=== PATIENT | female | born 1965 | race Two or more races ===

== ENCOUNTER 2021-08-13 09:17 | Emergency (ER) | payer OTHER, SELFPAY ==
--- NOTE | ~2021-08-13 | CT_ITS ---
EXAMINATION: CT HEAD WITHOUT CONTRAST CLINICAL INFORMATION: Frontal headache for 3 months. COMPARISON: None TECHNIQUE: Contiguous axial imaging was performed from the skull base to vertex without intravenous administration of contrast. Additional 2-D coronal and sagittal reformatted images are generated on the CT workstation and uploaded to PACS. This CT examination was performed using dose optimization techniques as appropriate, variously including the following: *Automated exposure control *Adjustment of mA and/or kV according to patient size (this includes techniques or standardized protocols for targeted exams where dose is matched to indication/reason for exam; i.e. extremities or head) *Use of iterative reconstruction technique DLP: 631 mGy-cm FINDINGS: There is no intracranial hemorrhage, hematoma, or extra-axial fluid collection. The ventricles are normal in size. There is no hydrocephalus, edema, or mass effect. There is some mild accentuated cortical sulci frontal regions representing mild atrophy. The lange-white matter differentiation appears well preserved and symmetric. There is no visible acute territorial infarct or mass lesion. The calvarium appears intact. There is no pneumocephalus or orbital emphysema. The visualized sinuses and middle ears and mastoid air cells show no significant mucosal thickening. There are no air-fluid levels. CT/CT head/brain wo con IMPRESSION: No acute intracranial abnormality.
--- NOTE | ~2021-08-13 | XR_ITS ---
EXAMINATION: XR CHEST CLINICAL INFORMATION: Shortness of breath. COMPARISON: None TECHNIQUE: 2 views of the chest were obtained. FINDINGS: No significant abnormality is noted involving the heart, lungs, mediastinum, bony thorax or soft tissues. XR/XR chest 2V IMPRESSION: Unremarkable chest examination.
[2021-08-13 10:27] VITALS: BP 176/84; PULSE 82; RESP 18; TEMP 36.9; O2SAT 98; BMI 26.6
--- NOTE | 2021-08-13 11:40 | ED_ITS ---
HPI - General Adult General Chief complaint: Headache Stated complaint: headache x 3 months Time Seen by Provider: 08/13/21 11:21 Source: patient Mode of arrival: ambulatory Limitations: no limitations History of Present Illness HPI narrative: 56-year-old female who presents emergency department for evaluation of shortness of breath and headache. 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 She states that 3 months prior they sprayed the building for COVID and she became exposed. She states that she developed shortness of breath at that time and had a chest x-ray which she was told is consistent with inflammation. She states that since that time she has had a constant headache. She states that the headache is located in her frontal area and behind her eyes. She also feels the headache and her occipital area. She states that the headache is a constant, pressure sensation which is 8/10 at its worst. She has pressure behind her eyes which she describes as a hot fee ling. She denied nausea, vomiting or weakness. She denies fever, chills, rhinorrhea. She states that her doctor thought that she might have a sinus infection and treated her with azithromycin and a steroid nasal spray. She did not complete the azithromycin and she stopped using the nasal sprays and she states these medicines did not help her. She has been taking ibuprofen and acetaminophen with no relief. The patient is not vaccinated for COVID-19. Related Data Previous Rx's Medication Instructions Recorded metoclopramide HCl 10 mg tablet 10 mg PO Q6H PRN #14 tab 08/13/21 (Reglan) Allergies Allergy/AdvReac Type Severity Reaction Status Date / Time penicillin G Allergy Unknown Verified 06/07/19 00:00 Review of Systems Review of Systems: Yes all other systems are reviewed and are negative [facility] Past Medical History [facility] Narrative: Past medical history: Hypertension, she does not take any medications for this, anemia. Social history: The patient denies tobacco, alcohol and drug use. 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 Social History Social History Alcohol intake: never Patient Tobacco Use Status: Never used Tobacco Use of substances other than those prescribed or required for medical reasons: No Advance Directives: No Patient : No Physical Exam Vital Signs: Vital Signs: Last Vital Signs Temp 98.4 F 08/13/21 10:27 Pulse 82 08/13/21 10:27 Resp 18 08/13/21 10:27 BP 176/84 H 08/13/21 10:27 Pulse Ox 98 08/13/21 10:27 Body Mass Index 26.6 Const: General: cooperative and no acute distress Orientation/consciousness: oriented to person and oriented to place Limitations: no limitations HENMT: Head: Yes normal to inspection, Yes normocephalic and Yes atraumatic Ears: external ears normal General nose exam: Normal external nose present Face and sinus: Yes normal facial exam Mouth: Normal oral and palatal mucosa present Throat: Yes posterior oropharynx normal Eyes: General: appearance normal, both eyes and all related structures Pupils: Equal, round and reactive pupils present Neck: Neck: Yes normal visual inspection, Yes no lymphadenopathy, Yes trachea midline and Yes supple Chest: Chest palpation & inspection: normal inspection of the chest and normal palpation of entire chest wall Resp: Effort & Inspection: normal respiratory effort and able to speak in complete sentences Auscultation: clear to auscultation bilaterally Cardio: Rate: regular rate Rhythm: regular rhythm Heart sounds: S1 normal heart sound present, S2 normal heart sound present and no murmurs GI: Inspection: Yes normal to inspection Palpation (GI): Soft to palpation, nontender and no guarding Auscultation: normal bowel sounds : General: Yes no CVA tenderness Back/Spine/Pelvis: Back: no CVA tenderness Skin: General skin exam: no rashes or lesions noted Neuro: General: oriented to person and oriented to place Cranial nerves: Yes CN's II-XII intact bilaterally and Yes Equal, round and reactive pupils present Cognition (Neuro): normal cognition Motor exam (neuro): 5/5 motor strength present throughout Extrem: General: Yes normal to inspection Psych: Appearance: grossly normal Speech and movement: Normal speech and movement present Affect: normal affect Attitude: cooperative Thought process: Normal thought process present Thought content: Normal thought content present Course Course Course Narrative: 56-year-old female who presents emergency department for evaluation of a constant headache x3 months that started after she was exposed to some type of medical cleaning solution for COVID-19. The patient was shayy luated by her PCP and was treated for sinusitis with a steroid nasal spray and azithromycin which she states did not change her symptoms. She has been taking acetaminophen and ibuprofen with no relief. Vital signs did reveal an elevated blood pressure of 176/84 otherwise were unremarkable. Physical examination was unremarkable. Given the chronicity of her headache, I did order a CBC, CMP, urinalysis, ESR and CRP. I will also obtain a CT scan of the patient's head to rule out mass effect. Patient's headache will be treated with Reglan 10 mg IV and Toradol 30 mg IV. She was also ordered to get normal saline IV x1 L. 1357: Laboratory evaluation was unremarkable with a normal ESR normal CRP. The CT scan of the patient's head revealed no acute findings. Chest x-ray revealed no acute findings. At this time, I suspect the patient's headaches are consistent with a migraine-like syndrome and I did discuss this with her. She was advised to take the following medications every 6 hours as needed for headache: Excedrin migraine 1 tablet, Reglan 10 mg. She was also advised to follow-up with PCP for re-evaluation and return to the emergency department if her symptoms get worse or she develops any symptoms that Medical Decision Making Lab Data Result diagrams: 08/13/21 12:38 08/13/21 12:38 Labs: Lab Results 08/13/21 08/13/21 08/13/21 Range/Units 12:38 12:38 12:38 WBC 7.3 (4.8-10.8) X10*3/uL RBC 5.41 (4.20-5.50) X10*6/uL Hgb 11.3 L (12.0-16.0) g/dl Hct 38.3 (37.0-47.0) % MCV 70.8 L (80.0-98.0) fL MCH 20.9 L (27.0-33.0) pg MCHC 29.5 L (31.0-35.0) g/dl RDW 16.7 H (11.0-16.0) % Plt Count 438 H (160-400) X10*3/uL MPV 10.9 (9.4-12.3) fL Immature Gran % (Auto) 0.4 (0.0-0.4) % Neut % (Auto) 71.8 (45-73) % Lymph % (Auto) 18.2 L (20-40) % [place] % (Auto) 7.3 (2-11) % Eos % (Auto) 1.6 (0-4) % Baso % (Auto) 0.7 (0-2) % Lymph # (Auto) 1.3 (1.2-4.9) X10*3/uL [place] # (Auto) 0.5 (0.1-1.2) X10*3/uL Eos # (Auto) 0.1 (0.0-0.4) X10*3/uL Baso # (Auto) 0.1 (0.0-0.2) X10*3/uL Abs Immat Gran (auto) 0.03 (0.00-0.03) X10*3/uL Absolute Neuts (auto) 5.3 (2.0-8.3) x10*3/uL Absolute Nucleated RBC 0.000 (0.0-0.012) X10*3/uL Nucleated RBC % (auto) 0.0 (0.0-0.2) /100WBC ESR 5 (0-20) MM/HR Sodium 139 (135-145) mmol/L Potassium 4.5 (3.3-5.1) mmol/L Chloride 105 (96-108) mmol/L Carbon Dioxide 23 (22-29) mmol/L Anion Gap 16 (12-20) BUN 10 (9-16) mg/dL Creatinine 0.80 (0.5-1.4) mg/dL Estim Creat Clear Calc 86.0 Estimated GFR > 60 Random Glucose 99 (60-115) mg/dL Calcium 10.1 (8.4-10.2) mg/dL Total Bilirubin 1.1 H (0.0-1.0) mg/dL AST 19 (5-31) U/L ALT 24 (0-31) U/L Alkaline Phosphatase 71 (39-117) U/L C-Reactive Protein 0.60 H (< or = 0.50) mg/dL Total Protein 8.0 (6.5-8.0) g/dL Albumin 4.6 (3.5-5.0) g/dL COVID-19 ([facility]) (Negative) COVID-19 Clin Com 08/13/21 Range/Units 12:38 WBC (4.8-10.8) X10*3/uL RBC (4.20-5.50) X10*6/uL Hgb (12.0-16.0) g/dl Hct (37.0-47.0) % MCV (80.0-98.0) fL MCH (27.0-33.0) pg MCHC (31.0-35.0) g/dl RDW (11.0-16.0) % Plt Count (160-400) X10*3/uL MPV (9.4-12.3) fL Immature Gran % (Auto) (0.0-0.4) % Neut % (Auto) (45-73) % Lymph % (Auto) (20-40) % [place] % (Auto) (2-11) % Eos % (Auto) (0-4) % Baso % (Auto) (0-2) % Lymph # (Auto) (1.2-4.9) X10*3/uL [place] # (Auto) (0.1-1.2) X10*3/uL Eos # (Auto) (0.0-0.4) X10*3/uL Baso # (Auto) (0.0-0.2) X10*3/uL Abs Immat Gran (auto) (0.00-0.03) X10*3/uL Absolute Neuts (auto) (2.0-8.3) x10*3/uL Absolute Nucleated RBC (0.0-0.012) X10*3/uL Nucleated RBC % (auto) (0.0-0.2) /100WBC ESR (0-20) MM/HR Sodium (135-145) mmol/L Potassium (3.3-5.1) mmol/L Chloride (96-108) mmol/L Carbon Dioxide (22-29) mmol/L Anion Gap (12-20) BUN (9-16) mg/dL Creatinine (0.5-1.4) mg/dL Estim Creat Clear Calc Estimated GFR Random Glucose (60-115) mg/dL Calcium (8.4-10.2) mg/dL Total Bilirubin (0.0-1.0) mg/dL AST (5-31) U/L ALT (0-31) U/L Alkaline Phosphatase (39-117) U/L C-Reactive Protein (< or = 0.50) mg/dL Total Protein (6.5-8.0) g/dL Albumin (3.5-5.0) g/dL COVID-19 ([facility]) Negative (Negative) COVID-19 Clin Com See Note Discharge Plan Discharge Clinical Impression: Headache Patient Disposition: Home, Self-Care Instructions: Acute Headache (ED) Additional Instructions: Your blood work was normal. You had 2 inflammatory markers that I would tested (sedimentation rate and CRP) that were normal. The CT scan of your head was also normal. Sometimes the cause of headaches is difficult to determine however at this time I do not think that you have an infection such as sinusitis or and any serious conditions causing her headache. I want you to take the following 2 medications together every 6 hours as needed for headache, nausea or vomiting. Reglan (metoclopramide) in 10 mg, 1 pill Excedrin migraine, 2 pills. After you take these medications, lie down in a dark quiet room and try to fall asleep. These medications will make you sleepy, do not drive or work after taking these medications. Your blood pressure was high in the emergency department. Your blood pressure was 176/84. This is not the cause of your headache. You should get a home blood pressure machine and check your blood pressure at home and the mornings on Mondays, Wednesdays and Fridays. Write these blood pressures down for the next 2-3 weeks then follow-up with her doctor determine if you need treatment for your high blood pressure. Follow-up with your doctor in 2 days. Please return to the emergency department if your symptoms get worse or if you develop any symptoms that are concerning to you. Prescriptions: New metoclopramide HCl [Reglan] 10 mg tablet 10 mg PO Q6H PRN (Reason: nausea and vomiting) Qty: 14 RF: 0
--- NOTE | 2021-08-13 12:35 | PC.NURSE ---
pt has been a difficult stick. IV finally established by Harvey SKAGGS. Pt complaining of diffuse headache x 3 months. consisitent.
[2021-08-13 12:45] LABS: MANUAL DIFF FLAG NO
[2021-08-13] MEDS: 0.9 % Sodium Chloride 1,000 ML 999 ML IV (12:51)
[2021-08-13] MEDS: Ketorolac Tromethamine 15 MG/ML VIAL 30 MG IVPUSH (12:52)
[2021-08-13 12:53] LABS: Basophils Absolute Auto 0.1 X10*3/uL (0.0-0.2); Basophils Percent Auto 0.7 % (0-2); Eosinophils Absolute Auto 0.1 X10*3/uL (0.0-0.4); Eosinophils Percent Auto 1.6 % (0-4); Hematocrit 38.3 % (37.0-47.0); Hemoglobin 11.3 g/dl (12.0-16.0); Imm Gran Abs Auto 0.03 X10*3/uL (0.00-0.03); Imm Gran Pct Auto 0.4 % (0.0-0.4); Lymphocytes Absolute Auto 1.3 X10*3/uL (1.2-4.9); Lymphocytes Percent Auto 18.2 % (20-40); Mean Corpuscular HGB Conc 29.5 g/dl (31.0-35.0); Mean Corpuscular Hemoglobin 20.9 pg (27.0-33.0); Mean Corpuscular Volume 70.8 fL (80.0-98.0); Mean Platelet Volume 10.9 fL (9.4-12.3); Monocytes Absolute Auto 0.5 X10*3/uL (0.1-1.2); Monocytes Percent Auto 7.3 % (2-11); Neutrophils Absolute Auto 5.3 x10*3/uL (2.0-8.3); Neutrophils Percent Auto 71.8 % (45-73); Platelet Count 438 X10*3/uL (160-400); Red Blood Count 5.41 X10*6/uL (4.20-5.50); Red Cell Distribution Width 16.7 % (11.0-16.0); White Blood Count 7.3 X10*3/uL (4.8-10.8)
[2021-08-13] MEDS: Metoclopramide HCl 10 MG/2 ML VIAL IVPUSH (12:53)
[2021-08-13 13:02] LABS: COVID-19 Test Negative (Negative)
[2021-08-13 13:06] LABS: Alanine Aminotransferase 24 U/L (0-31); Albumin Level 4.6 g/dL (3.5-5.0); Alkaline Phosphatase 71 U/L (39-117); Anion Gap 16 (12-20); Aspartate Amino Transferase 19 U/L (5-31); Bilirubin Total 1.1 mg/dL (0.0-1.0); Blood Urea Nitrogen 10 mg/dL (9-16); Calcium 10.1 mg/dL (8.4-10.2); Carbon Dioxide 23 mmol/L (22-29); Chloride 105 mmol/L (96-108); Estimated Glomerular Filt Rate > 60; Glucose Random 99 mg/dL (60-115); Potassium 4.5 mmol/L (3.3-5.1); Sodium 139 mmol/L (135-145)
[2021-08-13 13:45] LABS: Erythrocyte Sedimentation Rate 5 MM/HR (0-20)
[2021-08-13 15:22] VITALS: BP 138/83; PULSE 73; RESP 18; TEMP 37; O2SAT 100
== END 2021-08-13 15:26 | disposition home or self-care (01) ==
PROVIDERS: Emergency Provider Emergency Medicine Emergency Medical Services
DX: R51.9 Headache, unspecified (principal); Z20.822 Contact with and (suspected) exposure to COVID-19; R06.02 Shortness of breath
CPT/HCPCS: 36415; 70450; 71046; 80053; 85025; 85652; 86140; 87635; 96361; 96374; 96375; 99284; J1885; J2765

== ENCOUNTER 2024-01-18 08:52 | Emergency (ER) | payer OTHER, SELFPAY ==
--- NOTE | 2024-01-18 | ECG_ITS ---
Test Reason : CHEST PAIN Blood Pressure : / mmHG Vent. Rate : 080 BPM Atrial Rate : 080 BPM P-R Int : 136 ms QRS Dur : 074 ms QT Int : 362 ms P-R-T Axes : 032 030 071 degrees QTc Int : 417 ms Normal sinus rhythm Normal ECG No previous ECGs available Referred By: Generic ED Physician Electronically Signed By:Pierre Gee
--- NOTE | ~2024-01-18 | XR_ITS ---
EXAMINATION: XR CHEST CLINICAL INFORMATION: Chest pain COMPARISON: 08/13/2021 TECHNIQUE: 2 views of the chest were obtained. FINDINGS: Lungs are well-inflated. Linear opacity of minimal scarring or atelectasis in the lingula. Trachea is midline in position. No interstitial disease, consolidation or mass. There appears to be an old bulla in the medial left upper lobe. No pleural effusion or pneumothorax. Cardiac silhouette and pulmonary vessels are normal in size. The mediastinum and sharon have normal contour. No acute osseous abnormality. Moderate discovertebral degenerative change at L1-L2. XR/XR chest 2V IMPRESSION: No acute cardiopulmonary abnormality.
--- NOTE | ~2024-01-18 | CT_ITS ---
EXAMINATION: CT CHEST WITHOUT CONTRAST CLINICAL INFORMATION: Evaluate mass on left lung COMPARISON: Chest radiograph from 01/18/2024 TECHNIQUE: Multidetector volumetric CT imaging of the chest was done. Axial MIP volume rendering provided. Sagittal and coronal reformatted images were obtained. This CT examination was performed using dose optimization techniques as appropriate, variously including the following: *Automated exposure control *Adjustment of mA and/or kV according to patient size (this includes techniques or standardized protocols for targeted exams where dose is matched to indication/reason for exam; i.e. extremities or head) *Use of iterative reconstruction technique DLP: 219 mGy-cm FINDINGS: LUNGS/PLEURA: Large thin-walled bulla along the left upper lobe measuring 7.5 x 5.8 cm with smaller more septated air-filled cystic spaces with calcifications noted inferiorly. No focal consolidation. No large or suspicious pulmonary nodules or masses are noted. Central airways are patent. No pneumothorax. No large pleural effusion. MEDIASTINUM: Heart is not enlarged. No pericardial effusion. No coronary artery calcifications are noted. Aorta is nonaneurysmal. Atherosclerotic calcific patient with aortic arch. Main pulmonary artery is not enlarged. No enlarged lymph nodes per size criteria. Visualized portions of the thyroid are unremarkable. AXILLA: No lymphadenopathy. UPPER ABDOMEN: Spleen measures 12.5 cm. OSSEOUS STRUCTURES: Multilevel degenerative changes of the thoracolumbar spine. CT/CT chest wo IV con IMPRESSION: Large thin-walled bulla along the medial left upper lobe measuring 7.5 x 5.8 cm with smaller more septated air-filled cystic spaces with calcifications noted inferiorly.
[2024-01-18 09:04] VITALS: BP 171/100; PULSE 87; RESP 16; TEMP 36.6; O2SAT 99; BMI 25.1
[2024-01-18 09:35] LABS: MANUAL DIFF FLAG NO
[2024-01-18 09:38] LABS: Basophils Percent Auto 0.3 % (0-2); Eosinophils Absolute Auto 0.1 X10*3/uL (0.0-0.4); Eosinophils Percent Auto 1.5 % (0-4); Hemoglobin 14.4 g/dl (12.0-16.0); Imm Gran Abs Auto 0.03 X10*3/uL (0.00-0.03); Imm Gran Pct Auto 0.4 % (0.0-0.4); Lymphocytes Absolute Auto 1.3 X10*3/uL (1.2-4.9); Mean Corpuscular HGB Conc 33.5 g/dl (31.0-35.0); Mean Corpuscular Hemoglobin 28.3 pg (27.0-33.0); Mean Corpuscular Volume 84.6 fL (80.0-98.0); Mean Platelet Volume 11.1 fL (9.4-12.3); Monocytes Absolute Auto 0.5 X10*3/uL (0.1-1.2); Monocytes Percent Auto 6.8 % (2-11); Neutrophils Absolute Auto 5.3 x10*3/uL (2.0-8.3); Platelet Count 305 X10*3/uL (160-400); Red Blood Count 5.08 X10*6/uL (4.20-5.50); Red Cell Distribution Width 12.7 % (11.0-16.0); White Blood Count 7.2 X10*3/uL (4.8-10.8)
[2024-01-18 09:39] LABS: Appearance Urine Clear; Color Urine Yellow; Glucose Urine UA Negative (Negative); Leukocyte Esterase Urine Trace (Negative); Nitrite Urine Negative (Negative); UMIC TRIGGER UACC YES; Urine Blood Negative (Negative); Urine Ketones Trace mg/dL (Negative); Urine Protein Negative (Neg-Trace)
[2024-01-18 09:43] LABS: Bacteria Urine None Seen (None Seen); Hyaline Casts Urine 0-2 /LPF (0-2); RBC Urine 0-2 /HPF (0-2); Squamous Epithelial Cell Urine 0-2 /HPF (0-2); WBC Urine 0-5 /HPF (0-5)
[2024-01-18 09:57] LABS: Alanine Aminotransferase 19 U/L (0-31); Albumin Level 4.4 g/dL (3.5-5.0); Alkaline Phosphatase 69 U/L (39-117); Anion Gap 15 (12-20); Aspartate Amino Transferase 17 U/L (5-31); Bilirubin Total 1.1 mg/dL (0.0-1.0); Blood Urea Nitrogen 11 mg/dL (9-16); Calcium 10.2 mg/dL (8.4-10.2); Carbon Dioxide 23 mmol/L (22-29); Chloride 107 mmol/L (96-108); Creatinine Clr Calc Pharmacy 76.3; Estimated Glomerular Filt Rate > 60; Glucose Random 94 mg/dL (60-115); Potassium 3.9 mmol/L (3.3-5.1); Sodium 141 mmol/L (135-145); Total Protein 7.9 g/dL (6.5-8.0)
[2024-01-18 10:08] LABS: Troponin-I High Sensitivity < 2.7 ng/L (<3.5-17.0)
--- NOTE | 2024-01-18 18:25 | ED_ITS ---
HPI - Chest Pain General Chief Complaint: Chest Pain Stated Complaint: chest pain Time Seen by Provider: 01/18/24 20:26 Source: patient Mode of arrival: ambulatory Limitations: no limitations History of Present Illness HPI narrative: 58 year old female with pmh of HTN, known left lung mass, and depression presents to ED for mild left-sided chest discomfort that began this morning and wanted to see if there increase in size of mass. Patient states having this chest pain multiple times before since 2020 and she was informed by primary care provider this was due to the left lung bulla. Patient denies any pleurisy, leg swelling, calf pain, coughing up blood, recent long travel, recent surgery, history, of blood clots, or estrogen use. Related Data Previous Rx's ?Medication ?Instructions ?Recorded metoclopramide HCl 10 mg tablet 10 mg PO Q6H PRN nausea and 08/13/21 (Reglan) vomiting #14 tabs Allergies Allergy/AdvReac Type Severity Reaction Status Date / Time penicillin G Allergy Unknown Unknown Verified 01/18/24 09:05 Review of Systems 2 Review of Systems: mild chest discomfot Yes all other systems are reviewed and are negative [facility] Social History Social History Alcohol intake: never Patient Tobacco Use Status: Never used Tobacco Smoked in Last 30 Days: No Use of substances other than those prescribed or required for medical reasons: No Advance Directives: No Advance Directives Information Provided: No Do you have a plan to hurt others: No Plan Physical Exam 2 Vital Signs: Vital Signs: Last Vital Signs Temp 97.9 F 01/18/24 21:39 Pulse 78 01/18/24 21:39 Resp 16 01/18/24 21:39 BP 135/86 01/18/24 21:39 Pulse Ox 99 01/18/24 21:39 O2 Del Method Room Air 01/18/24 21:39 BMI result Body Mass Index 25.1 Const: Orientation/consciousness: oriented to person, oriented to place, oriented to time and patient oriented x3 HEENT: Head: Yes normal to inspection, Yes No palpable skull fracture present, Yes normocephalic and Yes atraumatic Eyes: General: appearance normal, both eyes and all related structures Neck: Neck: Yes normal visual inspection, Yes full ROM, Yes no lymphadenopathy, Yes no meningeal signs, Yes trachea midline, Yes supple, No anterior neck swelling and No tender Chest: Chest palpation & inspection: normal inspection of the chest and normal palpation of entire chest wall Resp: Effort & Inspection: normal respiratory effort and able to speak in complete sentences Auscultation: clear to auscultation bilaterally Cardio: Jugular venous distension: no JVD Heart sounds: S1 normal heart sound present and S2 normal heart sound present GI: Inspection: Yes normal to inspection Palpation (GI): Soft to palpation, not firm, nontender, no guarding and not rigid : General: No CVA tenderness and Yes no CVA tenderness Back/Spine/Pelvis: Back: no CVA tenderness, No CVA tenderness and No back tenderness Skin: General skin exam: no rashes or lesions noted, elasticity normal and turgor normal Neuro: General: oriented to person, oriented to place, oriented to time, patient oriented x3, gait normal, tone normal, moves all extremities, Normal light touch and pain sensation, no meningeal signs, no focal motor deficits, CN's II-XI intact bilaterally and normal sensation to monofilament Extrem: Other: Bilateral lower extremity negative for swelling, pitting edema, or calf tenderness General: Yes normal to inspection, Yes full ROM and Yes capillary refill normal Psych: Appearance: grossly normal, well kempt and not disheveled Course Course Course Narrative: RME performed by Aditi Haas PA-C. Patient is a 58 year old assigned female at presenting to the emergency department with chest pain and requesting further evaluation of left lung mass. Detailed physical exam and review of systems are deferred to the corporate technical recruiter. Labs, imaging, and swabs ordered. Patient placed back in the waiting room pending room availability and results. Medical Decision Making Medical Decision Making MDM Narrative: 58-year-old female history of hypertension, known left lung bullae, and depression presents to ED for mild left-sided chest discomfort. Patient presently asymptomatic. Patient made concern was to see those increased size in the left lung bulla. He denies any CHF or PE symptoms. Patient has no risk for PE or CHF. Chest CT chest x-ray confirms left lung bulla. Patient does not want 2nd troponin to rule out myocardial infarction. Patient informed of risks including and still would like to sign out against medical advice. Daughter was present. Patient explained worrisome signs and informed to return to the ED if she has them. PERC score 0 Differential Diagnosis Differential Diagnoses: The differential diagnosis associated with the presentation includes (CHF, myocardial infarction,) Admission/Observation Consideration of admission/observation: Escalation of care including admission/observation considered Lab Data MDM Lab Attestation statement: I reviewed the patient's lab results. 01/18/24 09:25 01/18/24 09:25 Labs: Lab Results 01/18/24 01/18/24 Range/Units 09:25 18:18 WBC 7.2 (4.8-10.8) X10*3/uL RBC 5.08 (4.20-5.50) X10*6/uL Hgb 14.4 D (12.0-16.0) g/dl Hct 43.0 (37.0-47.0) % MCV 84.6 (80.0-98.0) fL MCH 28.3 (27.0-33.0) pg MCHC 33.5 (31.0-35.0) g/dl RDW 12.7 (11.0-16.0) % Plt Count 305 D (160-400) X10*3/uL MPV 11.1 (9.4-12.3) fL Immature Gran % (Auto) 0.4 (0.0-0.4) % Neut % (Auto) 73.0 (45-73) % Lymph % (Auto) 18.0 L (20-40) % [place] % (Auto) 6.8 (2-11) % Eos % (Auto) 1.5 (0-4) % Baso % (Auto) 0.3 (0-2) % Lymph # (Auto) 1.3 (1.2-4.9) X10*3/uL [place] # (Auto) 0.5 (0.1-1.2) X10*3/uL Eos # (Auto) 0.1 (0.0-0.4) X10*3/uL Baso # (Auto) 0.0 (0.0-0.2) X10*3/uL Abs Immat Gran (auto) 0.03 (0.00-0.03) X10*3/uL Absolute Neuts (auto) 5.3 (2.0-8.3) x10*3/uL Absolute Nucleated RBC 0.000 (0.0-0.012) X10*3/uL Nucleated RBC % (auto) 0.0 (0.0-0.2) /100WBC Sodium 141 (135-145) mmol/L Potassium 3.9 (3.3-5.1) mmol/L Chloride 107 (96-108) mmol/L Carbon Dioxide 23 (22-29) mmol/L Anion Gap 15 (12-20) BUN 11 (9-16) mg/dL Creatinine 0.80 (0.5-1.4) mg/dL Estim Creat Clear Calc 76.3 Estimated GFR > 60 Random Glucose 94 (60-115) mg/dL Calcium 10.2 (8.4-10.2) mg/dL Total Bilirubin 1.1 H (0.0-1.0) mg/dL AST 17 (5-31) U/L ALT 19 (0-31) U/L Alkaline Phosphatase 69 (39-117) U/L Troponin I High Sens < 2.7 (<3.5-17.0) ng/L Total Protein 7.9 (6.5-8.0) g/dL Albumin 4.4 (3.5-5.0) g/dL Urine Color Yellow Urine Appearance Clear Urine pH 6.0 (5.0-9.0) Ur Specific [place] 1.020 (1.005-1.025) Urine Protein Negative (Neg-Trace) mg/dL Urine Glucose (UA) Negative (Negative) mg/dL Urine Ketones Trace (Negative) mg/dL Urine Blood Negative (Negative) Urine Nitrite Negative (Negative) Ur Leukocyte Esterase Trace H (Negative) Urine RBC 0-2 (0-2) /HPF Urine WBC 0-5 (0-5) /HPF Ur Squamous Epith Cells 0-2 (0-2) /HPF Urine Bacteria None Seen (None Seen) Hyaline Casts 0-2 (0-2) /LPF Influenza Type A (PCR) NEGATIVE (Negative) Influenza Type B (PCR) NEGATIVE (Negative) RSV RNA Qual (PCR) NEGATIVE (Negative) SARS-CoV-2 RNA (RT-PCR) NEGATIVE (Negative) Independent Interpretation I performed an independent interpretation of an: EKG (Normal sinus rhythm. Negative STEMI) and CT Scan Radiology Impression Discussion of test interpretation with radiology: I have reviewed the radiologist's reading. Independent Historian Clinical information obtained from an independent historian. History obtained from or confirmed by: Other (Patient) External Record Review External record reviewed: Other (Prior visits) Discharge Plan Discharge Clinical Impression: Chest pain Patient Disposition: Left Against Medical Advice Instructions: Chest Pain (ED) Additional Instructions: Recommend follow-up with primary care provider and turfgrass management professor. Return to the ED immediately for any chest pain, shortness of chest, leg swelling, calf pain, coughing up blood, fever, chills, or any other concerning symptoms Prescriptions: No Action metoclopramide HCl [Reglan] 10 mg tablet 10 mg PO Q6H PRN (Reason: nausea and vomiting) Qty: 14 0RF Stand Alone Forms: Against Medical Advice Interventions: ED Discharge Assessment Last Done: 01/18/24 21:39 Discharge Date/Time: 01/18/24 21:40 Print Language: Finnish
[2024-01-18 19:16] LABS: Influenza A PCR NEGATIVE (Negative); Influenza B PCR NEGATIVE (Negative); Resp Syncy Virus RNA Qual PCR NEGATIVE (Negative); SARS COV2 PCR INHOUSE NEGATIVE (Negative)
[2024-01-18 20:24] VITALS: BP 135/86; PULSE 78; RESP 16; TEMP 36.6; O2SAT 99
[2024-01-18 21:39] VITALS: BP 135/86; PULSE 78; RESP 16; TEMP 36.6; O2SAT 99
== END 2024-01-18 21:40 | disposition left against medical advice (07) ==
PROVIDERS: Physician Assistant Medical; Emergency Provider Emergency Medicine; PCP Internal Medicine
DX: R07.9 Chest pain, unspecified (principal); R91.8 Other nonspecific abnormal finding of lung field; I10 Essential (primary) hypertension; F32.A Depression, unspecified; Z03.818 Encounter for observation for suspected exposure to other biological agents ruled out
CPT/HCPCS: 0241U; 36415; 71046; 71250; 80053; 81001; 84484; 85025; 93005; 99284; 99285

== ENCOUNTER → 2024-01-18 09:11 | Outpatient (BNV) | payer OTHER, SELFPAY | PROVIDERS: PCP Internal Medicine; Visit Provider Internal Medicine Cardiovascular Disease | DX: R07.9 Chest pain, unspecified (principal) | CPT/HCPCS: 93010 ==